=== PATIENT | male | born 1945 | race Caucasian/White ===

== ENCOUNTER 2016-11-04 12:13 | Emergency (ER) | payer MEDICARE | END 2016-11-04 13:36 | disposition home or self-care (01) | LOC: ER 12:13 | DX: M54.40 Lumbago with sciatica, unspecified side (principal); G89.29 Other chronic pain; I51.9 Heart disease, unspecified; Z95.1 Presence of aortocoronary bypass graft; F17.210 Nicotine dependence, cigarettes, uncomplicated; Z79.899 Other long term (current) drug therapy; Z79.82 Long term (current) use of aspirin | CPT/HCPCS: 96372; 99282-25 ==